=== PATIENT | female | born 1995 | race Caucasian/White ===

== ENCOUNTER 2025-01-20 11:55 | Emergency (ER) | payer OTHER, SELFPAY ==
[2025-01-20 12:07] VITALS: BP 143/95; PULSE 96; RESP 20; TEMP 36.6; O2SAT 100; BMI 21.4
--- NOTE | 2025-01-20 12:30 | ED.HA ---
HPI - Headache <Deana Cha PA-C - Last Filed: 01/20/25 14:46> General Chief Complaint: Headache Stated Complaint: FELDMAN Time Seen by Provider: 01/20/25 12:29 Mode of arrival: Ambulatory History of Present Illness HPI Narrative: Ms. Fontenot is a very pleasant 29-year-old female, retired [employer], with a past medical history of complex migraine headaches, constant tinnitus, constant spots in her visions, anxiety who presents to the emergency department for headache since yesterday. Patient reports yesterday she started developing intermittent episodes of left-sided headache that she describes as a ?shocking? feeling that comes and goes. This felt abnormal from her normal migraine however she figured she would be able to sleep it off. However today when she woke up she continued to intermittently have this pain, however the pain is occurring much less frequently at this time and is not currently present. She denies any other symptoms with this pain including visual disturbance, hearing disturbance, numbness tingling or weakness, unilateral changes, dizziness, fevers, chills, flu-like symptoms. She denies any trauma to her head. Reports that she did not take any medications prior to arrival. She did drive herself to the emergency department. She has previously seen Neurology for her migraine headaches and states that she typically just takes ibuprofen and/or acetaminophen. Surgical history includes tonsillectomy. Related Data Allergies Allergy/AdvReac Type Severity Reaction Status Date / Time No Known Drug Allergies Allergy Verified 01/20/25 13:04 Review of Systems <Deana Cha PA-C - Last Filed: 01/20/25 14:46> Review of Systems ROS Unobtainable: All systems reviewed & are unremarkable except as noted in HPI and below Patient History <Deana Cha PA-C - Last Filed: 01/20/25 14:46> Social History Smoking Status: Never smoker Smoking Status: Never smoker Exam <Deana Cha PA-C - Last Filed: 01/20/25 14:46> Narrative Exam Narrative: GENERAL: 29 year old patient appears stated age. Well-developed patient, in no acute distress. HEAD: Atraumatic. Normocephalic. Temples are nontender. EYES: PERRL. Extraocular motions intact. No scleral icterus. No injection or drainage. ENT: Normal TMs bilaterally. Nose without bleeding, purulent drainage. Throat without erythema, tonsillar hypertrophy or exudate. Airway patent. NECK: Trachea midline. Cervical ROM intact. CARDIOVASCULAR: Regular rate and rhythm. RESPIRATORY: ?Nonlabored respirations. ?Speaking in clear, full sentences. ?Clear to auscultation. Breath sounds equal bilaterally. No wheezes, rales, or rhonchi. ? EXTREMITIES: No edema or joint tenderness. . NEURO: AOx3. ?Clear speech. ?Moves all 4 extremities appropriately. No facial asymmetry. Normal ewvete-xvlg-cxpicc, heel-ely, rapid alternating movements. 5/5 bilateral upper and lower extremity strength. SKIN: No rash or erythema of visible areas Initial Vital Signs Initial Vital Signs: Vital Signs Temperature 98 F 01/20/25 12:07 Pulse Rate 96 H 01/20/25 12:07 Respiratory Rate 20 01/20/25 12:07 Blood Pressure 143/95 H 01/20/25 12:07 Pulse Oximetry 100 01/20/25 12:07 Oxygen Delivery Method Room Air 01/20/25 12:07 <Geri Zavala MD - Last Filed: 01/20/25 17:58> Initial Vital Signs Initial Vital Signs: Vital Signs Temperature 98 F 01/20/25 12:07 Pulse Rate 96 H 01/20/25 12:07 Respiratory Rate 20 01/20/25 12:07 Blood Pressure 143/95 H 01/20/25 12:07 Pulse Oximetry 100 01/20/25 12:07 Oxygen Delivery Method Room Air 01/20/25 12:07 Course <Deana Cha PA-C - Last Filed: 01/20/25 14:46> Orders Ordered: ED Orders 01/20/25 12:48 CT head/brain wo con Stat Discontinued Medications Acetaminophen (Acetaminophen 325 Mg Tablet) 975 mg PO NOW ONE Stop: 01/20/25 12:48 Last Admin: 01/20/25 13:12 Dose: 975 mg Documented By: ALIA Sodium Chloride (Normal Saline 0.9%) 1,000 mls @ 1,000 mls/hr IV BOLUS ONE Stop: 01/20/25 13:46 Last Infusion: 01/20/25 14:10 Dose: Infused Documented By: Admin: 01/20/25 13:12 Dose: 1,000 mls/hr Documented By: ALIA Ketorolac Tromethamine (Ketorolac 30 Mg/Ml Vial) 15 mg IV NOW ONE Stop: 01/20/25 12:48 Last Admin: 01/20/25 13:12 Dose: 15 mg Documented By: ALIA Ondansetron HCl (Ondansetron 4 Mg/2 Ml Inj) 4 mg IV NOW ONE Stop: 01/20/25 12:50 Last Admin: 01/20/25 13:13 Dose: 4 mg Documented By: ALIA Vital Signs Vital signs: Vital Signs - 8 hr 01/20/25 12:07 01/20/25 14:47 Temperature 98 F Pulse Rate 96 H 74 Respiratory Rate 20 16 Blood Pressure 143/95 H 107/61 Pulse Oximetry 100 99 Oxygen Delivery Method Room Air Room Air <Geri Zavala MD - Last Filed: 01/20/25 17:58> Orders Ordered: ED Orders 01/20/25 12:48 CT head/brain wo con Stat Discontinued Medications Acetaminophen (Acetaminophen 325 Mg Tablet) 975 mg PO NOW ONE Stop: 01/20/25 12:48 Last Admin: 01/20/25 13:12 Dose: 975 mg Documented By: ALIA Sodium Chloride (Normal Saline 0.9%) 1,000 mls @ 1,000 mls/hr IV BOLUS ONE Stop: 01/20/25 13:46 Last Infusion: 01/20/25 14:10 Dose: Infused Documented By: Admin: 01/20/25 13:12 Dose: 1,000 mls/hr Documented By: ALIA Ketorolac Tromethamine (Ketorolac 30 Mg/Ml Vial) 15 mg IV NOW ONE Stop: 01/20/25 12:48 Last Admin: 01/20/25 13:12 Dose: 15 mg Documented By: ALIA Ondansetron HCl (Ondansetron 4 Mg/2 Ml Inj) 4 mg IV NOW ONE Stop: 01/20/25 12:50 Last Admin: 01/20/25 13:13 Dose: 4 mg Documented By: ALIA Vital Signs Vital signs: Vital Signs - 8 hr 01/20/25 12:07 01/20/25 14:47 Temperature 98 F Pulse Rate 96 H 74 Respiratory Rate 20 16 Blood Pressure 143/95 H 107/61 Pulse Oximetry 100 99 Oxygen Delivery Method Room Air Room Air MDM - Headache <Deana Cha PA-C - Last Filed: 01/20/25 14:46> Lab Data Labs: Point of Care Testing Test Results Negative Imaging Data CT scan - head: Radiologist's Impression: PROCEDURE: CT HEAD/BRAIN WO CON INDICATIONS: left protestant focal FELDMAN since yesterday; no trauma TECHNIQUE: Noncontrast 4.5 mm thick angled axial sections acquired from the foramen magnum to the vertex, with coronal and sagittal reformats. For radiation dose reduction, the following was used: automated exposure control, adjustment of mA and/or kV according to patient size. COMPARISON: None. FINDINGS: Image quality: Diagnostic. CSF spaces: Basal cisterns are patent. No extra-axial fluid collections. Ventricles are normal in size and shape. Brain: No midline shift. No intracranial masses or hemorrhage. Rene-white matter interface is normal. Skull and face: Calvarium and visualized facial bones are intact, without suspicious lesions. Sinuses: Visualized sinuses and mastoids are clear. IMPRESSION: No acute intracranial pathology. [facility] Narrative Medical decision making narrative: 29-year-old female, retired [employer], with a past medical history of complex migraine headaches, constant tinnitus, constant spots in her visions, anxiety who presents to the emergency department for headache since yesterday. Differential diagnosis includes but not limited to cluster headache, tension headache, complex migraine, occipital neuralgia, intracranial mass, etc. On exam the patient is in no acute distress, nontoxic appearing. No focal neurologic deficits. She does report chronic spots in her vision, ringing in her ears, frequent migraines and neck pain. Her only new symptom is intermittent left-sided scalp shocking pain. The pain is not currently present at this time however she has not experienced pain this severe or similar to this manner in the past. Given change in headache pattern, we will obtain CT head to rule out intracranial abnormality or mass. We will treat with fluids, Zofran, Toradol, acetaminophen at this time. UPreg: negative. Patient feeling better after ED treatment. CT head reveals no acute abnormalities. Suspect possible atypical migraine, however we discussed very strict ED return precautions, and I advised prompt follow up with the PCP and her neurologist. She verbalized understanding of all information and is agreeable to this plan. She is stable for discharge home. <Geri Zavala MD - Last Filed: 01/20/25 17:58> Lab Data Labs: Point of Care Testing Test Results Negative Discharge Plan Departure Patient Disposition: Home Clinical Impression: Left-sided headache Instructions: DI for Migraine Activity Restrictions/Additional Instructions: Dear Ms. Fontenot, Thank you for coming to the emergency department. Today you were evaluated for left-sided headache. You received an IV migraine cocktail, and imaging did not reveal any acute abnormalities. I am glad that you are feeling better. Please call to schedule an appointment with your primary care doctor as soon as possible for further evaluation, and please also call your neurologist for follow up. You may continue taking ibuprofen and acetaminophen if needed for pain. Please take Ibuprofen (Motrin/Advil) or Acetaminophen (Tylenol) for pain. These are available over the counter. You may take Ibuprofen 600 mg every 8 hours with food for pain. You may also take Acetaminophen 650 mg every 4-6 hours for pain. Do not exceed 3000 mg of Tylenol a day as this can cause liver damage. Do not drink alcohol with either of these medications. Please return to the emergency department immediately if you develop any new or worsening symptoms, severe pain, visual disturbances, numbness, tingling or weakness, or fevers, or any other concerns. Please follow up with your primary care doctor within the next 2-3 days for ER follow-up. (If you do not have a PCP you can call [phone]. ?to schedule an appointment with an [facility] Primary Care Provider) IF YOU DEVELOP ANY NEW OR WORSENING SYMPTOMS, RETURN TO THE ER! Please read the attached instructions, they highlight more specific treatments and interventions for you at home. Thank you for letting me participate in your care, Deana Cha PA-C Referrals: Provider,Roge CARPENTER [Primary Care Provider] - Stand Alone Forms: Patient Portal/API/Survey ED Sign-out <Geri Zavala MD - Last Filed: 01/20/25 17:58> Cosign ED Attending Cosignature Attestation: I was immediately available in the department for consultation throughout this patient's visit. Geri Zavala MD
--- NOTE | 2025-01-20 12:48 | DI.CT.S_ITS ---
PROCEDURE: CT HEAD/BRAIN WO CON INDICATIONS: left moravian focal FELDMAN since yesterday; no trauma TECHNIQUE: Noncontrast 4.5 mm thick angled axial sections acquired from the foramen magnum to the vertex, with coronal and sagittal reformats. For radiation dose reduction, the following was used: automated exposure control, adjustment of mA and/or kV according to patient size. COMPARISON: None. FINDINGS: Image quality: Diagnostic. CSF spaces: Basal cisterns are patent. No extra-axial fluid collections. Ventricles are normal in size and shape. Brain: No midline shift. No intracranial masses or hemorrhage. Rene-white matter interface is normal. Skull and face: Calvarium and visualized facial bones are intact, without suspicious lesions. Sinuses: Visualized sinuses and mastoids are clear. IMPRESSION: No acute intracranial pathology. Dictated by: Obed Pizano M.D. on 01/20/2025 at 13:45 Approved by: Obed Pizano M.D. on 01/20/2025 at 13:46
[2025-01-20] MEDS: ACETAMINOPHEN 325 MG TABLET 975 MG PO (13:12)
[2025-01-20] MEDS: KETOROLAC 30 MG/ML VIAL 15 MG IV (13:12)
[2025-01-20] MEDS: SODIUM CHLORIDE 0.9% 1,000 ML 1000 ML IV (13:12)
[2025-01-20] MEDS: ONDANSETRON 4 MG/2 ML INJ IV (13:13)
--- NOTE | 2025-01-20 14:13 | PC.NURSE ---
Pt reports headache. States she has a history of neck pain and headaches chronically. But states yesterday she started to feel a zap on the left side of her head that would come in clusters. Pt denies n/v/d or visual issues. Pt states she is suppose to see her PCP next week about the headaches but states the zaps scared her too much where she felt anxious and wanted to be seen
[2025-01-20 14:47] VITALS: BP 107/61; PULSE 74; RESP 16; O2SAT 99
== END 2025-01-20 14:48 | disposition home or self-care (01) ==
PROVIDERS: Emergency Provider Physician Assistant
DX: R51.9 Headache, unspecified (principal)
CPT/HCPCS: 70450; 81025; 96361; 96374; 96375; 99284; J1885; J2405

== ENCOUNTER 2025-04-26 17:00 | Emergency (ER) | payer OTHER, SELFPAY ==
[2025-04-26 17:37] VITALS: BP 132/80; PULSE 79; RESP 18; TEMP 37.1; O2SAT 100; BMI 20.7
--- NOTE | 2025-04-26 17:45 | EKG_ITS ---
[address] [address] Test Date: 2025-04-26 Pat Name: Dee Fontenot Department: Room: Gender: Female Supplemental Manager: : 1995 Requested By: Order Number: [id number] Reading MD: Norman Stern MD Measurements Intervals [place] Rate: 73 P: 6 IN: 162 QRS: 39 QRSD: 92 T: -1 QT: 394 QTc: 434 Interpretive Statements Normal sinus rhythm Electronically Signed On 04-27-2025 12:09:19 PDT by Norman Stern MD
[2025-04-26 21:52] VITALS: BP 135/76; PULSE 75; RESP 14; TEMP 36.7; O2SAT 100
--- NOTE | 2025-04-26 22:38 | DI.RAD.S_ITS ---
PROCEDURE: XR CHEST 1V INDICATIONS: chest pain TECHNIQUE: One view of the chest was acquired. COMPARISON: None. FINDINGS: Surgical changes and devices: None. Lungs and pleura: Lungs are clear. No pleural effusions or pneumothorax. Mediastinum: Mediastinal contours appear normal. Heart size is normal. Bones and chest wall: No suspicious bony lesions. Overlying soft tissues appear unremarkable. IMPRESSION: No acute cardiopulmonary abnormalities or focal consolidation. Dictated by: Dimas Pires M.D. on 04/26/2025 at 23:11 Approved by: Dimas Pires M.D. on 04/26/2025 at 23:11
--- NOTE | 2025-04-27 00:15 | PC.NURSE ---
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
[2025-04-27 00:42] LABS: Add Manual Diff / Slide Review NO; Basophils Absolute Auto 0 /uL (0-100); Basophils Percent Auto 0.7 % (0-2); Eosinophils Absolute Auto 0 /uL (0-450); Eosinophils Percent Auto 0.7 % (2-4); Hematocrit 37.5 % (36-46); Lymphocytes Absolute Auto 1800 /uL (1100-4500); Lymphocytes Percent Auto 37.4 % (25-40); Mean Corpuscular HGB Conc 34.7 % (30-36); Mean Corpuscular Hemoglobin 30.1 PG (26-34); Mean Corpuscular Volume 86.6 fL (80-100); Monocytes Absolute Auto 300 /uL (0-900); Monocytes Percent Auto 5.4 % (3-14); Neutrophils Absolute Auto 2700 /uL (1500-7000); Neutrophils Percent Auto 55.8 % (50-75); Platelet Count 225 X10^3/uL (150-400); Red Blood Cell Count 4.33 X10^6/uL (4.0-5.2); Red Cell Distribution Width 13.6 % (11.6-14.8); White Blood Cell Count 4.8 X10^3/uL (4.5-11.0)
[2025-04-27 00:51] LABS: Alanine Aminotransferase 22 IU/L (<35); Albumin 4.9 g/dL (3.5-5.0); Albumin Globulin Ratio 1.8 (1.0-2.8); Alkaline Phosphatase 32 U/L (38-126); Aspartate Aminotransferase 27 IU/L (14-36); BUN Creatinine Ratio 14.9 (6-22); Bilirubin Total 1.1 mg/dL (0.2-1.3); Blood Urea Nitrogen 11 mg/dL (7-17); Calcium 9.4 mg/dL (8.4-10.2); Carbon Dioxide 26 mmol/L (22-32); Chloride 101 mmol/L (98-107); Estimated Glomerular Filt Rate > 60 mL/min (>60); Globulin 2.8 g/dL (1.7-4.1); Glucose 124 mg/dL (70-99); HEMOLYSIS < 15 (0-50); Potassium 3.3 mmol/L (3.4-5.1); Sodium 136 mmol/L (137-145); Total Protein 7.7 g/dL (6.3-8.2)
[2025-04-27 00:55] LABS: D Dimer < 215 ng/ml (<500)
[2025-04-27 01:03] LABS: Troponin I < 0.012 ng/mL (0.01-0.034)
--- NOTE | 2025-04-27 04:03 | ED.CHESTPAIN ---
HPI - Chest Pain General Chief Complaint: Chest Pain Stated Complaint: chest heaviness, panic attack Time Seen by Provider: 04/26/25 22:37 Source: patient Mode of arrival: Ambulatory History of Present Illness HPI narrative: 29-year-old woman presents complaining of chest pain for the last 48 hours. Describes significant increased anxiety to the point of ?full on panic mode?. Was doing homework for a master's degree that she is working on when she developed the chest heaviness this evening. She notes that she has not been sleeping well for the past number of days. She does not describe specific reason for anxiety, does not feel like she is particularly stressed beyond school that she seems to be enjoying. She states she has always been on the anxious side but his always tried to avoid medications, no addiction or recreational drug issues. No recent fevers cough or chills Related Data Previous Rx's ?Medication ?Instructions ?Recorded hydroxyzine HCl 25 mg tablet 25 mg PO TID PRN anxiety #20 tabs 04/27/25 Allergies Allergy/AdvReac Type Severity Reaction Status Date / Time No Known Drug Allergies Allergy Verified 04/26/25 17:37 Review of Systems Review of Systems Narrative: Pertinent positive and negative findings as per HPI Patient History Smoking Status: Never smoker Exam Initial Vital Signs Initial Vital Signs: Vital Signs Temperature 98.7 F 04/26/25 17:37 Pulse Rate 79 04/26/25 17:37 Respiratory Rate 18 04/26/25 17:37 Blood Pressure 132/80 04/26/25 17:37 Pulse Oximetry 100 04/26/25 17:37 Oxygen Delivery Method Room Air 04/26/25 17:37 General: Alert appropriate in no acute distress Respiratory: Able to speak in full sentences, no obvious respiratory distress Skin: No obvious rashes, warm and dry Neurologic: Grossly intact no obvious asymmetries or abnormalities Psych: appropriate insight and affect, cooperative, fluent speech pattern, cooperative Course Orders Ordered: ED Orders 04/26/25 22:38 XR chest 1V Stat Complete Blood Count AUTO DIFF Stat Comprehensive Metabolic Panel Stat D Dimer Stat Troponin I Stat Discontinued Medications Acetaminophen (Acetaminophen 325 Mg Tablet) 325 mg PO NOW ONE Stop: 04/26/25 22:38 Ibuprofen (Ibuprofen 400 Mg Tablet) 400 mg PO NOW ONE Stop: 04/26/25 22:38 Vital Signs Vital signs: Vital Signs - 8 hr 04/26/25 21:52 Temperature 98.1 F Pulse Rate 75 Respiratory Rate 14 Blood Pressure 135/76 Pulse Oximetry 100 Oxygen Delivery Method Room Air MDM - Chest Pain Lab Data 04/27/25 00:26 04/27/25 00:26 Labs: Lab Results 04/27/25 Range/Units 00:26 WBC 4.8 (4.5-11.0) X10^3/uL RBC 4.33 (4.0-5.2) X10^6/uL Hgb 13.0 (12.0-16.0) g/dL Hct 37.5 (36-46) % MCV 86.6 (80-100) fL MCH 30.1 (26-34) PG MCHC 34.7 (30-36) % RDW 13.6 (11.6-14.8) % Plt Count 225 (150-400) X10^3/uL Neut % (Auto) 55.8 (50-75) % Lymph % (Auto) 37.4 (25-40) % [place] % (Auto) 5.4 (3-14) % Eos % (Auto) 0.7 L (2-4) % Baso % (Auto) 0.7 (0-2) % Neut # (Auto) 2700 (0361-3900) /uL Lymph # (Auto) 1800 (8700-2718) /uL [place] # (Auto) 300 (0-900) /uL Eos # (Auto) 0 (0-450) /uL Baso # (Auto) 0 (0-100) /uL D-Dimer < 215 (<500) ng/ml Sodium 136 L (137-145) mmol/L Potassium 3.3 L (3.4-5.1) mmol/L Chloride 101 (98-107) mmol/L Carbon Dioxide 26 (22-32) mmol/L BUN 11 (7-17) mg/dL Creatinine 0.74 (0.52-1.04) mg/dL Estimated GFR > 60 (>60) mL/min BUN/Creatinine Ratio 14.9 (6-22) Glucose 124 H (70-99) mg/dL Calcium 9.4 (8.4-10.2) mg/dL Total Bilirubin 1.1 (0.2-1.3) mg/dL AST 27 (14-36) IU/L ALT 22 (<35) IU/L Alkaline Phosphatase 32 L (38-126) U/L Troponin I < 0.012 (0.01-0.034) ng/mL Total Protein 7.7 (6.3-8.2) g/dL Albumin 4.9 (3.5-5.0) g/dL Globulin 2.8 (1.7-4.1) g/dL Albumin/Globulin Ratio 1.8 (1.0-2.8) MDM Narrative Medical decision making narrative: 29-year-old woman currently working on a master's degree in [employer], poor sleep over the last couple of days increasing over all existential anxiety with a sensation of tightness over her chest. No recent fevers cough or chills. No history of asthma. No trauma. She is not feeling actually short of breath, no cough no abdominal pain no change to bowel habits. Workup is reassuring with normal CBC, normal chemistries, Chest x-ray does not suggest significant abnormality EKG shows sinus rhythm at a rate of 73 with no ischemic changes appreciated Findings reviewed with the patient. With shared decision-making we discussed medication management including hydroxyzine, benzodiazepines, BuSpar, antidepressants. We will start with trying Vistaril and see if that helps. She is given a prescription for such. Reviewed anticipated reaction to the medication. I did suggest she follow up with her primary care physician if she finds that she is needing it more frequently and suggested that she may benefit from more appropriate long-term treatment of anxiety with something such as BuSpar or an SSRI. Currently there was no indication for hospitalization or further workup. Questions are answered and she is safely discharged Discharge Plan Departure Patient Disposition: Home Clinical Impression: Anxiety, Atypical chest pain Instructions: DI for Anxiety -- Adult Activity Restrictions/Additional Instructions: Thank you for coming into Your workup in the emergency department was quite reassuring. There was no evidence of infection, bleeding or blood loss, heart attack or heart attack like syndrome, your EKG and your chest x-ray were both very reassuring We briefly discussed overall anxiety. I have given you pill of hydroxyzine to take when you get home. This is not addictive and can help take the edge off anxiety so that you can feel more in control. It can make you sleepy which may help with sleep patterns as well If you find that it is helpful it is safe to take up to 3 times a day as needed. Few find that you are needing it that frequently, I would recommend scheduling an appointment with your primary care physician. There are some very effective treatments to prevent anxiety in the 1st place. You may find that BuSpar which is specifically for anxiety but is taken every single day to prevent anxiety or even antidepressant we will be helpful If you find that you are getting worse or develop any new symptoms, please feel free to return to the emergency department for further evaluation. Prescriptions: New hydroxyzine HCl 25 mg tablet 25 mg PO TID PRN (Reason: anxiety) Qty: 20 0RF Referrals: ProviderRoge [Primary Care Provider, Family Practice] Stand Alone Forms: Patient Portal/API
[2025-04-27] MEDS: hydrOXYzine HCL 25 MG TABLET PO (04:34)
[2025-04-27 04:39] VITALS: BP 128/74; PULSE 72; RESP 18; O2SAT 100
== END 2025-04-27 04:40 | disposition home or self-care (01) ==
PROVIDERS: Emergency Provider Emergency Medicine
DX: F41.9 Anxiety disorder, unspecified (principal); R07.89 Other chest pain
CPT/HCPCS: 36415; 71045; 80053; 84484; 85025; 85379; 93005; 93010; 99283; 99284; A9270